=== PATIENT | male | born 1995 | race Caucasian/White ===

== ENCOUNTER 2016-07-04 17:53 | Emergency (ER) | payer MEDICAID ==
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
== END 2016-07-04 19:15 | disposition disaster alternative care site (69) ==
LOC: GACC 17:53
DX: S01.81XA Laceration without foreign body of other part of head, initial encounter (principal); S40.212A Abrasion of left shoulder, initial encounter; S30.810A Abrasion of lower back and pelvis, initial encounter; F90.9 Attention-deficit hyperactivity disorder, unspecified type; F39 Unspecified mood [affective] disorder; V87.8XXA Person injured in other specified noncollision transport accidents involving motor vehicle (traffic), initial encounter; Y93.55 Activity, bike riding

== ENCOUNTER 2016-07-14 18:42 | Emergency (ER) | payer MEDICAID ==
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
== END 2016-07-14 19:27 | disposition disaster alternative care site (69) ==
LOC: GACC 18:42
DX: S93.402A Sprain of unspecified ligament of left ankle, initial encounter (principal); F32.9 Major depressive disorder, single episode, unspecified; F90.9 Attention-deficit hyperactivity disorder, unspecified type; Z79.899 Other long term (current) drug therapy; W22.8XXA Striking against or struck by other objects, initial encounter; Y93.02 Activity, running